=== PATIENT | male | born 1965 | race Caucasian/White ===

== ENCOUNTER 2017-04-27 09:24 | Emergency (ER) | payer OTHER ==
[~2017-04-27] VITALS: Ht 165.1 cm; Wt 88.3 kg
[2017-04-27 09:27] VITALS: BP 147/74; PULSE 91; RESP 16; TEMP 99.2; O2SAT 99
[2017-04-27] MEDS ORDERED: SODIUM CHLORIDE 0.9% FLUSH 10 ML FLUSH IV FLUSH PRN (09:45)
--- NOTE | 2017-04-27 09:52 | PD ---
HPI Chief Complaint: GI Complaint Time Seen by Provider: 09:30 Travel History International Travel<30 days: No Contact w/Intl Traveler<30days: No Traveled to known affect area: No History of Present Illness HPI This is a 52 year old male who presents for left lower abdominal/flank pain. He states that over the last year, he has had intermittent episodes of pain in the left flank/lower abdomen. It has increased over the last 1-2 months. He states when the pain comes, it usually lasts for about 2 days at a time. He states that he sometimes will have one episode of diarrhea when the pain comes. No melena or hematochezia. No fever, chills, nausea, vomiting. No urinary urgency, frequency, dysuria, hematuria. He states that he called his physician at the [place] today to arrange an appointment and was instructed to come to the emergency department. The pain is not aggravated by bending or twisting. He has not tried taking any medication for it. No alleviating or aggravating factors. Mild in severity. Onset gradual. He denies significant pain at this time. [facility] Past Medical History Medical History: Denies Significant Hx Diminished Hearing: No Immunizations Current: No Past Surgical History Narrative Surgical hiatal hernia, hernia, back surgery, knee surgery Social History Alcohol Use: Yes (SOCIALLY-2x/mo) Tobacco Use: Yes (5 CIGARETTES PER DAY) Substance Use: No Allergies-Medications (Allergen,Severity, Reaction): Coded Allergies: No Known Allergies (Unverified Adverse Reaction, Unknown, 04/27/17) Reported Meds & Prescriptions Reported Meds & Active Scripts Active No Active Prescriptions or Reported Medications Review of Systems Except as stated in HPI: all other systems reviewed are Neg Physical Exam Narrative GENERAL: Alert, well nourished, well appearing patient resting on the bed in no acute distress. Vital Signs reviewed SKIN: Focused skin assessment warm/dry. HEAD: Atraumatic. Normocephalic. EYES: Pupils equal and round. No scleral icterus. No injection or drainage. ENT: No nasal bleeding or discharge. Mucous membranes pink and moist. NECK: Trachea midline. No JVD. Spontaneous, painless full range of motion with no meningismus CARDIOVASCULAR: Regular rate and rhythm. No murmur appreciated. Extremities warm and well perfused with bounding peripheral pulses RESPIRATORY: No accessory muscle use. Clear to auscultation. Breath sounds equal bilaterally. Breathing easily and speaking in full sentences GASTROINTESTINAL: Abdomen soft, non-tender, nondistended. Normal bowel sounds. No rigid, rebound, guarding. no tenderness at McBurney's point. Negative Tovar sign. No CVA tenderness. MUSCULOSKELETAL: No obvious deformities. No clubbing. No cyanosis. No edema. Compartments are soft NEUROLOGICAL: Awake and alert. No obvious cranial nerve deficits. Motor grossly within normal limits. Normal speech. Sensation intact. Normal gait Data Data Last Documented VS Vital Signs Date Time Temp Pulse Resp B/P (MAP) Pulse Ox O2 Delivery O2 Flow Rate FiO2 04/27/17 09:27 99.2 91 16 147/74 (98) 99 Orders Orders Urinalysis - C+S If Indicated (04/27/17 09:29) Complete Blood Count With Diff (04/27/17 09:35) Comprehensive Metabolic Panel (04/27/17 09:35) Lipase (04/27/17 09:35) Ct Abd/Pel W Iv Contrast(Rout) (04/27/17 09:35) Iv Access Insert/Monitor (04/27/17 09:35) Sodium Chloride 0.9% Flush (Ns Flush) (04/27/17 09:45) Iohexol 350 Inj (Omnipaque 350 Inj) (04/27/17 11:11) Labs Laboratory Tests Test 04/27/17 09:50 White Blood Count 7.2 TH/MM3 Red Blood Count 4.63 MIL/MM3 Hemoglobin 15.0 GM/DL Hematocrit 43.0 % Mean Corpuscular Volume 92.8 FL Mean Corpuscular Hemoglobin 32.4 PG Mean Corpuscular Hemoglobin Concent 34.9 % Red Cell Distribution Width 12.8 % Platelet Count 310 TH/MM3 Mean Platelet Volume 7.4 FL Neutrophils (%) (Auto) 67.6 % Lymphocytes (%) (Auto) 19.9 % Monocytes (%) (Auto) 9.0 % Eosinophils (%) (Auto) 2.4 % Basophils (%) (Auto) 1.1 % Neutrophils # (Auto) 4.9 TH/MM3 Lymphocytes # (Auto) 1.4 TH/MM3 Monocytes # (Auto) 0.6 TH/MM3 Eosinophils # (Auto) 0.2 TH/MM3 Basophils # (Auto) 0.1 TH/MM3 CBC Comment DIFF FINAL Differential Comment Urine Collection Type CLEAN CATCH Urine Color YELLOW Urine Turbidity CLEAR Urine pH 5.0 Urine Specific [place] 1.023 Urine Protein NEG mg/dL Urine Glucose (UA) NEG mg/dL Urine Ketones NEG mg/dL Urine Occult Blood NEG Urine Nitrite NEG Urine Bilirubin NEG Urine Leukocyte Esterase NEG Urine RBC 0-3 /hpf Urine Squamous Epithelial Cells 0-5 /hpf Microscopic Urinalysis Comment CULT NOT INDICATED Urine Collection Time 09:50 Blood Urea Nitrogen 17 MG/DL Creatinine 0.85 MG/DL Random Glucose 90 MG/DL Total Protein 7.9 GM/DL Albumin 4.1 GM/DL Calcium Level 9.6 MG/DL Alkaline Phosphatase 51 U/L Aspartate Amino Transf (AST/SGOT) 35 U/L Alanine Aminotransferase (ALT/SGPT) 70 U/L Total Bilirubin 0.5 MG/DL Sodium Level 138 MEQ/L Potassium Level 4.1 MEQ/L Chloride Level 104 MEQ/L Carbon Dioxide Level 26.7 MEQ/L Anion Gap 7 MEQ/L Estimat Glomerular Filtration Rate 95 ML/MIN Lipase 162 U/L [facility] Medical Decision Making Medical Screen Exam Complete: Yes Emergency Medical Condition: Yes Medical Record Reviewed: Yes Interpretation(s) Laboratory Tests Test 04/27/17 09:50 White Blood Count 7.2 TH/MM3 Red Blood Count 4.63 MIL/MM3 Hemoglobin 15.0 GM/DL Hematocrit 43.0 % Mean Corpuscular Volume 92.8 FL Mean Corpuscular Hemoglobin 32.4 PG Mean Corpuscular Hemoglobin Concent 34.9 % Red Cell Distribution Width 12.8 % Platelet Count 310 TH/MM3 Mean Platelet Volume 7.4 FL Neutrophils (%) (Auto) 67.6 % Lymphocytes (%) (Auto) 19.9 % Monocytes (%) (Auto) 9.0 % Eosinophils (%) (Auto) 2.4 % Basophils (%) (Auto) 1.1 % Neutrophils # (Auto) 4.9 TH/MM3 Lymphocytes # (Auto) 1.4 TH/MM3 Monocytes # (Auto) 0.6 TH/MM3 Eosinophils # (Auto) 0.2 TH/MM3 Basophils # (Auto) 0.1 TH/MM3 CBC Comment DIFF FINAL Differential Comment Urine Collection Type CLEAN CATCH Urine Color YELLOW Urine Turbidity CLEAR Urine pH 5.0 Urine Specific [place] 1.023 Urine Protein NEG mg/dL Urine Glucose (UA) NEG mg/dL Urine Ketones NEG mg/dL Urine Occult Blood NEG Urine Nitrite NEG Urine Bilirubin NEG Urine Leukocyte Esterase NEG Urine RBC 0-3 /hpf Urine Squamous Epithelial Cells 0-5 /hpf Microscopic Urinalysis Comment CULT NOT INDICATED Urine Collection Time 09:50 Blood Urea Nitrogen 17 MG/DL Creatinine 0.85 MG/DL Random Glucose 90 MG/DL Total Protein 7.9 GM/DL Albumin 4.1 GM/DL Calcium Level 9.6 MG/DL Alkaline Phosphatase 51 U/L Aspartate Amino Transf (AST/SGOT) 35 U/L Alanine Aminotransferase (ALT/SGPT) 70 U/L Total Bilirubin 0.5 MG/DL Sodium Level 138 MEQ/L Potassium Level 4.1 MEQ/L Chloride Level 104 MEQ/L Carbon Dioxide Level 26.7 MEQ/L Anion Gap 7 MEQ/L Estimat Glomerular Filtration Rate 95 ML/MIN Lipase 162 U/L CT abdomen and pelvis shows 1. No abnormality is identified to explain the left lower quadrant and flank pain. No acute abnormality is seen. 2. Nonacute findings including hepatic steatosis and mild atherosclerotic disease. 3. There is a 4 mm noncalcified pulmonary nodule in the left lower lobe. If the patient is at low risk for pulmonary malignancy, no followup is necessary. If the patient has a smoking history, consider one year followup noncontrast chest CT. Differential Diagnosis Musculoskeletal pain, diverticulitis, kidney stone, UTI Narrative Course IV access was established. Labs, imaging were performed. The patient states that he is having minimal abdominal pain in the emergency department. He was offered but declined pain medication. He has had no vomiting or diarrhea. He states that he was [facility] the pain that he has had intermittently for a year but was referred to the emergency department. I reviewed the results of the workup with him including the pulmonary nodule seen. I feel he is stable for discharge with supportive care and close outpatient follow-up. Patient understands the importance of close outpatient follow-up. He understands he may require further testing and treatment as an outpatient. He understands strict return indications. He is comfortable with this plan and eager to go home. Diagnosis Primary Impression: Left lower quadrant abdominal pain of unknown etiology Referrals: Primary Care Physician 2 days Patient Instructions: Abdominal Pain (ED), General Instructions Additional Instructions: Drink plenty of water to stay well hydrated. Follow-up with primary physician as soon as possible. You may require further testing and treatment as an outpatient. We strongly recommend you quit smoking. The pulmonary nodule seen on CT will need to be followed as an outpatient. Med/Other Pt SpecificInfo: No Change to Meds Scripts No Active Prescriptions or Reported Meds Disposition: 01 DISCHARGE HOME Condition: Stable Alee Hurley MD Apr 27, 2017 09:52
[2017-04-27 10:11] LABS: AUTOMATED NEUTROPHIL # 4.9 TH/MM3 (1.8-7.7); BASOPHIL # 0.1 TH/MM3 (0-0.2); BASOPHIL % 1.1 % (0.0-2.0); EOSINOPHIL # 0.2 TH/MM3 (0-0.4); EOSINOPHIL % 2.4 % (0.0-4.0); LYMPH % 19.9 % (9.0-44.0); LYMPHOCYTE # 1.4 TH/MM3 (1.0-4.8); MEAN CELL VOLUME 92.8 FL (80.0-100.0); MEAN CORPUSCULAR HEMOGLOBIN 32.4 PG (27.0-34.0); MEAN CORPUSCULAR HGB CONC 34.9 % (32.0-36.0); MEAN PLATELET VOLUME 7.4 FL (7.0-11.0); MONOCYTE # 0.6 TH/MM3 (0-0.9); NEUT % 67.6 % (16.0-70.0); PLATELET COUNT 310 TH/MM3 (150-450); RED BLOOD COUNT 4.63 MIL/MM3 (4.50-5.90); RED CELL DISTRIBUTION WIDTH 12.8 % (11.6-17.2); WHITE BLOOD COUNT 7.2 TH/MM3 (4.0-11.0)
[2017-04-27 10:14] LABS: BILIRUBIN, URINE NEG (NEG); BLOOD, URINE NEG (NEG); GLUCOSE,URINE NEG (NEG); KETONE, URINE NEG (NEG); NITRITE,URINE NEG (NEG); URINE LEUKOCYTE ESTERASE NEG (NEG)
[2017-04-27 10:21] LABS: RBC, URINE 0-3 /hpf (0-3); SQUAMOUS EPITHELIAL CELL URINE 0-5 /hpf (0-5); URINE COLOR YELLOW (YELLW/STRAW)
[2017-04-27 10:31] LABS: CHLORIDE 104 MEQ/L (98-107); SODIUM (NA) 138 MEQ/L (136-145)
[2017-04-27 10:35] LABS: ALBUMIN 4.1 GM/DL (3.4-5.0); BICARBONATE 26.7 MEQ/L (21.0-32.0); CALCIUM 9.6 MG/DL (8.5-10.1); GLUCOSE,RANDOM 90 MG/DL (74-106)
[2017-04-27 10:38] LABS: ALT (GPT) 70 U/L (12-78); CREATININE 0.85 MG/DL (0.60-1.30); GLOMERULAR FILTRATION RATE 95 ML/MIN (>89)
[2017-04-27 10:40] LABS: AST (GOT) 35 U/L (15-37); TOTAL BILIRUBIN ADULT 0.5 MG/DL (0.2-1.0); TOTAL PROTEIN 7.9 GM/DL (6.4-8.2)
[2017-04-27 10:41] LABS: ALKALINE PHOSPHATASE 51 U/L (45-117); BLOOD UREA NITROGEN 17 MG/DL (7-18)
[2017-04-27] MEDS ORDERED: IOHEXOL 350 MG/ML 10 ML VIAL (for RAD DIAG) IVCONTRAST ONE (11:11)
--- NOTE | 2017-04-27 11:31 | RADRPT ---
EXAM DATE/TIME: 04/27/2017 11:01 [facility] COMPARISON: No previous studies available for comparison. INDICATIONS : Left lower quadrant and flank pain. Diarrhea. IV CONTRAST: 85 cc Omnipaque 350 (iohexol) IV ORAL CONTRAST: No oral contrast ingested. RADIATION DOSE: 14.47 CTDIvol (mGy) MEDICAL HISTORY : None SURGICAL HISTORY : None. ENCOUNTER: Initial ACUITY: 2 days PAIN SCALE: 5/10 LOCATION: Left lower quadrant TECHNIQUE: Volumetric scanning of the abdomen and pelvis was performed. Using automated exposure control and ad justment of the mA and/or kV according to patient size, radiation dose was kept as low as reasonably achievable to obtain optimal diagnostic quality images. DICOM format image data is available electro nically for review and comparison. FINDINGS: LOWER LUNGS: There is a 4 mm subpleural pulmonary nodule in the left lower lobe. Otherwise, lung bases are clear. LIVER: There is decreased density of the liver with sparing around the gallbladder fossa. No focal liver les ion is seen. Portal vein is within normal limits. There is no dilation of the biliary tree. No calc ified gallstones. SPLEEN: Normal size without lesion. PANCREAS: Within normal limits. KIDNEYS: Normal in size and shape. There is no mass, stone or hydronephrosis. ADRENAL GLANDS: Within normal limits. VASCULAR: There is no aortic aneurysm. There is mild atherosclerotic disease. BOWEL/MESENTERY: There is a surgical clip near the GE junction. Changes at the fundus of the stomach suggest prior fun doplication surgery. The stomach, small bowel, and colon demonstrate no acute abnormality. There is no free intraperitoneal air or fluid. ABDOMINAL WALL: Within normal limits. RETROPERITONEUM: There is no lymphadenopathy. BLADDER: No wall thickening or mass. REPRODUCTIVE: Within normal limits. INGUINAL: There is no lymphadenopathy or hernia. MUSCULOSKELETAL: There has been prior laminectomy at L4-L5. 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 CONCLUSION: 1. No abnormality is identified to explain the left lower quadrant and flank pain. No acute abnormali ty is seen. 2. Nonacute findings including hepatic steatosis and mild atherosclerotic disease. 3. There is a 4 mm noncalcified pulmonary nodule in the left lower lobe. If the patient is at low ris k for pulmonary malignancy, no followup is necessary. If the patient has a smoking history, consider one year followup noncontrast chest CT. Tutu Elmore MD on April 27, 2017 at 11:25 Board Certified Radiologist. This report was verified electronically.
[2017-04-27 11:51] VITALS: BP 119/89
== END 2017-04-27 11:53 | disposition home or self-care (01) ==
LOC: PHED 09:24
DX: R10.32 Left lower quadrant pain (principal); R91.1 Solitary pulmonary nodule; F17.210 Nicotine dependence, cigarettes, uncomplicated
CPT/HCPCS: 74177; 80053; 81001; 83690; 85025; 99284; Q9967

== ENCOUNTER 2017-05-21 22:59 | Emergency (ER) | payer OTHER ==
[~2017-05-21] VITALS: Ht 177.8 cm; Wt 90.2 kg
[2017-05-21 23:03] VITALS: BP 137/85; PULSE 119; RESP 18; TEMP 97.7; O2SAT 96
== END 2017-05-21 23:32 | disposition left against medical advice (07) ==
LOC: PHED 22:59
DX: Z53.21 Procedure and treatment not carried out due to patient leaving prior to being seen by health care provider (principal)
CPT/HCPCS: 99281